=== PATIENT | male | born 1990 | race Asian ===

== ENCOUNTER 2021-02-22 16:53 | Emergency (ER) | payer OTHER ==
[~2021-02-22] VITALS: Ht 170.2 cm; Wt 90.9 kg
[2021-02-22 17:01] VITALS: BP 135/77
[2021-02-22] MEDS ORDERED: IBUPROFEN 200 MG TABLET. PO ONE (18:00)
--- NOTE | 2021-02-22 18:31 | RAD ---
EXAM: 3 views left elbow AP and lateral views left forearm DATE: 02/22/2021 6:11 PM INDICATION: fall COMPARISON: No Prior FINDINGS/ IMPRESSION: 1. Linear lucency through the radial neck consistent with nondisplaced fracture. Moderate associated soft tissue swelling is seen. 2. No elbow joint effusion. No distal left forearm fracture. 3. Soft tissue swelling about the left wrist. Electronically signed by: Georges Villa MD (02/22/2021 6:28 PM) SLIME
--- NOTE | 2021-02-22 19:02 | PHYS DOC ---
Past Medical History Past Surgical History: Other Additional Past Surgical Histo: HANDS/LEGS Smoking Status: Current Every Day Smoker Additional Information: 1.5 PPD Alcohol Use: None General Adult EDM: Chief Complaint: UPPER EXTREMITY INJURY HPI: HPI: Patient is a 30 year old male who presents with left forearm pain after a fall out of his truck. Patient states he landed directly on his left forearm. Denies hitting his head. Denies hand or wrist pain. Range of motion and sensation are intact. Radial pulses intact. Denies taking anything for pain prior to arrival. Denies health history. Review of Systems: Review of Systems: ROS At least 10 ROS systems have been reviewed and are negative except as documented in the HPI. General: Negative except as outlined in HPI above. Skin: Negative except as outlined in HPI above. HEENT: Negative except as outlined in HPI above. Neck: Negative except as outlined in HPI above. Respiratory: Negative except as outlined in HPI above.. Cardiovascular: Negative except as outlined in HPI above. Abdomen: Negative except as outlined in HPI above. : Negative except as outlined in HPI above. Back/MSK: Negative except as outlined in HPI above. Neuro: Negative except as outlined in HPI above. Psych: Negative except as outlined in HPI above. Heart Score: C/O Chest Pain: No Risk Factors: Risk Factors: DM, Current or recent (<one month) smoker, HTN, HLP, family history of CAD, obesity. Risk Scores: Score 0 - 3: 2.5% MACE over next 6 weeks - Discharge Home Score 4 - 6: 20.3% MACE over next 6 weeks - Admit for Clinical Observation Score 7 - 10: 72.7% MACE over next 6 weeks - Early Invasive Strategies Current Medications: Current Medications Medications (Trade) Dose Ordered Sig/Magdalene Start Time Stop Time Status Last Admin Dose Admin Ibuprofen (Motrin) 600 mg 1X ONCE 02/22/21 18:00 02/22/21 18:03 DC 02/22/21 18:11 600 MG Allergies: Allergies: Allergies Coded Allergies Type Severity Reaction Last Updated Verified No Known Drug Allergies 02/22/21 No Physical Exam: PE: Constitutional: Well developed, well nourished, no acute distress, non-toxic appearance. [] HENT: Normocephalic, atraumatic, bilateral external ears normal, oropharynx moist, no oral exudates, nose normal. [] Eyes: PERRLA, EOMI, conjunctiva normal, no discharge. [] Neck: Normal range of motion, no tenderness, supple, no stridor. [] Cardiovascular:Heart rate regular rhythm, no murmur [] Lungs & Thorax: Bilateral breath sounds clear to auscultation [] Abdomen: Bowel sounds normal, soft, no tenderness, no masses, no pulsatile masses. [] Skin: Warm, dry, no erythema, no rash. [] Back: No tenderness, no CVA tenderness. [] Extremities: Left forearm tenderness, ROM intact, no edema. [] Neurologic: Alert and oriented X 3, normal motor function, normal sensory function, radial pulses intact Psychologic: Affect normal, judgement normal, mood normal. [] Current Patient Data: Vital Signs: Vital Signs Date Time Temp Pulse Resp B/P (MAP) Pulse Ox O2 Delivery O2 Flow Rate FiO2 02/22/21 17:01 99.3 79 16 135/77 (96) 99 Room Air 99.3 EKG: EKG: [] Radiology/Procedures: Radiology/Procedures: []EXAM: 3 views left elbow AP and lateral views left forearm DATE: 02/22/2021 6:11 PM INDICATION: fall COMPARISON: No Prior FINDINGS/ IMPRESSION: 1. Linear lucency through the radial neck consistent with nondisplaced fracture. Moderate associated soft tissue swelling is seen. 2. No elbow joint effusion. No distal left forearm fracture. 3. Soft tissue swelling about the left wrist. Electronically signed by: Georges Villa MD (02/22/2021 6:28 PM) [facility] Course & Med Decision Making: Course & Med Decision Making Pertinent Labs and Imaging studies reviewed. (See chart for details) [] 30-year-old male who presents with left forearm pain after falling while getting out of his truck yesterday. Sensation and range of motion intact. Work-up in ER consisted of x-ray of left forearm and elbow. Pain treated in the ER. Left forearm x-ray shows linear lucency through the radial neck consistent with nondisplaced fracture. Patient placed in a posterior long-arm splint. Discussed results with patient. Educated on RICE. Sending patient home with prescription for hydrocodone.. Patient can use ibuprofen for breakthrough pain. Patient will need to follow-up with from Orthopedics. Patient given contact information for Dr. Sanz and agreed to call tomorrow to make a follow up appointment. Discussed return precautions with patient. Patient verbalized understanding of discharge instructions. Keerthi Disclaimer: Keerthi Disclaimer: This electronic medical record was generated, in whole or in part, using a voice recognition dictation system. Departure Departure Impression: Primary Impression: Left forearm fracture Qualified Codes: S52.92XA - Unspecified fracture of left forearm, initial encounter for closed fracture Disposition: HOME / SELF CARE / HOMELESS Condition: STABLE Referrals: NO PCP (PCP) Patient Instructions: Forearm Fracture, [id number] Additional Instructions: You were seen in the emergency room for fracture to left forearm. Your arm was splinted. I am sending you home with a prescription for pain medication. You can also take ibuprofen for breakthrough pain. You will need to follow-up with orthopedics. Please call tomorrow. I have included the phone number below. Please return to the emergency room with worsening symptoms or concerns. Orthopedics Dr.John Sanz [address] [facility] [address] EMERGENCY DEPARTMENT GENERAL DISCHARGE INSTRUCTIONS Thank you for coming to Emergency Department (ED) today and trusting us with you care. We trust that you had a positive experience in our Emergency Department. If you wish to speak to the department management, you may call the Director at [phone]. YOUR FOLLOW UP INSTRUCTIONS ARE FOLLOWS: 1. Do you have a private Doctor? If you do not have a private doctor, please ask for a resource list of physicians or clinics that may be able to assist you with follow up care. 2. The Emergency Physicain has interpreted your x-rays. The X-Ray specialist will also review them. If there is a change in the findings, you will be notified in 48 hours when at all possible. 3. A lab test or culture has been done, your results will be reviewed and you will be notified if you need a change in treatment. ADDITIONAL INSTRUCTIONS AND INFORMATION: 1. Your care today has been supervised by a physician who is specially trained in emergency care. Many problems require more than one evaluation for a complete diagnosis and treatment. We recommend that you schedule your follow up appointment as recommended to ensure complete treatment of you illness or injury. If you are unable to obtain follow up care and continue to have a problem, or if your condition worsens, we recommend that you return to the ED. 2. We are not able to safely determine your condition over the phone nor are we able to give sound medical advice over the phone. For these safety reasons, if you call for medical advice we will ask you to come to the ED for further evaluation. 3. If you have any questions regarding these discharge instructions please call the ED at [phone]. SAFETY INFORMATION: In the interest of safety, wellness, and injury prevention; we encourage you to wear your sealbelt, if you smoke; quite smoking, and we encourage family to use a protective helmet for bicycling and other sporting events that present an increased risk for head injury. IF YOUR SYMPTOMS WORSEN OR NEW SYMPTOMS DEVELOP, OR YOU HAVE CONCERNS ABOUT YOUR CONDITION; OR IF YOUR CONDITION WORSENS WHILE YOU ARE WAITING FOR YOUR FOLLOW UP APPOINTMENT; EITHER CONTACT YOUR PRIMARY CARE DOCTOR, THE PHYSICIAN WHOSE NAME AND NUMBER YOU WERE Amber GARCÍA, OR RETURN TO THE ED IMMEDIATELY. Scripts Hydrocodone Bit/Acetaminophen (HYDROCODONE-APAP 5-325 ) 1 Tab Tablet 1 TAB PO PRN Q6HRS PRN for PAIN for 3 Days, #10 TAB 0 Refills Prov: NICHOLAS WHITE APRN 02/22/21 NICHOLAS WHITE APRN Feb 22, 2021 19:02
[2021-02-22] MEDS ORDERED: HYDR-2761 PO (19:03)
== END 2021-02-22 19:35 | disposition home or self-care (01) ==
LOC: ER 16:53
DX: S52.92XA Unspecified fracture of left forearm, initial encounter for closed fracture (principal); F17.200 Nicotine dependence, unspecified, uncomplicated; V59.88XA Occupant (driver) (passenger) of pick-up truck or van injured in other specified transport accidents, initial encounter; Y92.488 Other paved roadways as the place of occurrence of the external cause; Y93.89 Activity, other specified; Y99.8 Other external cause status
CPT/HCPCS: 73080; 73090; 99284